=== PATIENT | female | born 1975 | race American Indian/Alaskan Native ===

== ENCOUNTER 2017-04-06 14:08 | Emergency (ER) | payer OTHER ==
--- NOTE | 2017-04-06 14:24 | Emergency Department Report ---
Chief Complaint: High BP Stated Complaint: SOB,HTN Time Seen by Provider: 04/06/17 14:19 - HPI History of Present Illness: PT states she recently had an IUD placed - 02-21-17 PT states on subsequent visit- her bp has been elevated PT c/o pelvic pain. PT states she was seen at and had US - ROS Review of Systems: + vaginal bleeding - swelling to ext + left leg pain - Exam Physical Exam: pt looks well, non toxic. steady gait noted MSE screening note: Focused history and physical exam performed. Due to findings the following was ordered: labs, us ED Disposition for MSE Condition: Stable
[2017-04-06 15:26] LABS: Bacteria,Urine 2+ /HPF (Negative); Bilirubin,Urine NEG (Negative); Blood,Urine MOD (Negative); Ketones,Urine NEG (Negative); Leukocyte Esterase,Urine SM (Negative); Mucus,Urine FEW /HPF; Nitrite,Urine NEG (Negative); Protein,Urine <15 mg/dL mg/dL (Negative); Urobilinogen,Urine < 2.0 mg/dL (<2.0)
[2017-04-06 15:45] LABS: Basophils % (Auto) 0.8 % (0.0-1.8); Hematocrit 40.6 % (30.3-42.9); Hemoglobin 13.2 gm/dl (10.1-14.3); Mean Corpuscular HGB Conc 33 % (30-34); Mean Corpuscular Hemoglobin 28 pg (28-32); Mean Corpuscular Volume 86 fl (79-97); Platelet Count 347 K/mm3 (140-440); Red Blood Count 4.73 M/mm3 (3.65-5.03); Red Cell Distribution Width 13.8 % (13.2-15.2); White Blood Count 15.4 K/mm3 (4.5-11.0)
[2017-04-06 16:18] LABS: Alanine Aminotransferase 18 units/L (7-56); Albumin 4.3 g/dL (3.9-5); Albumin/Globulin Ratio 1.2 %; Alkaline Phosphatase 61 units/L (35-129); Anion Gap 14 mmol/L; Blood Urea Nitrogen 12 mg/dL (7-17); Calcium 9.3 mg/dL (8.4-10.2); Carbon Dioxide 29 mmol/L (22-30); Chloride 94.6 mmol/L (98-107); Glucose 90 mg/dL (65-100); Potassium 3.7 mmol/L (3.6-5.0); Sodium 134 mmol/L (137-145)
[2017-04-07] MEDS ORDERED: NORCO 5/325 PO ONE (03:53)
--- NOTE | 2017-04-07 05:30 | Emergency Department Report ---
HPI - General Chief Complaint: High BP Time Seen by Provider: 04/06/17 14:19 - HPI HPI: This is a 41-year-old Afro-[place] female who presents to the emergency department with a few different complaints. The patient says she's been dealing with some uncontrolled blood pressure. She has had a couple different visits to a urgent care who eventually started her on 10 mg of Norvasc. She says she has been taking compliantly over the past few days but still had an elevated blood pressure when she checked it earlier today at [facility]. She also complains of a generalized headache for the past 2 days. She denies any vision change, slurred speech or any neurological deficits. The patient complained of some shortness of breath. When she told the urgent care physician that she was having shortness of breath with recent IUD placed, she was told to come to [facility] for further evaluation. She denies any fever, back pain, dysuria, vaginal bleeding, vaginal discharge or diaphoresis. She does not have any other past medical history. No recent travel or sick contacts at home. She denies any tobacco abuse or illicit drug use. ED Past Medical Hx - Past Medical History Previous Medical History?: No - Surgical History Past Surgical History?: No - Social History Smoking Status: Never Smoker - Medications Home Medications: Home Medications Medication Instructions Recorded Confirmed Last Taken Type HYDROcodone/APAP 5-325 [[place] 1 each PO Q6HR PRN #10 tablet 04/07/17 Unknown Rx 5/325] ED Review of Systems ROS: Stated complaint: SOB,HTN Other details as noted in HPI Comment: All other systems reviewed and negative Constitutional: denies: chills, fever Eyes: denies: eye pain, eye discharge, vision change ENT: denies: ear pain, throat pain Respiratory: shortness of breath. denies: cough Cardiovascular: denies: palpitations, edema Gastrointestinal: denies: abdominal pain, nausea, diarrhea Genitourinary: denies: urgency, dysuria, discharge Musculoskeletal: denies: back pain, joint swelling, arthralgia Skin: denies: rash, lesions Neurological: headache. denies: weakness, numbness Physical Exam - Physical Exam Vital Signs: Vital Signs 04/06/17 04/06/17 04/07/17 14:18 22:09 00:18 Temperature 97.5 F L 98.6 F 98.5 F Pulse Rate 99 H 96 H 90 Respiratory 16 18 18 Rate Blood Pressure 134/93 Blood Pressure 150/110 166/117 [Right] O2 Sat by Pulse 100 100 98 Oximetry 04/07/17 04/07/17 04/07/17 02:09 03:04 03:11 Temperature 98.9 F Pulse Rate 88 86 78 Respiratory 18 12 20 Rate Blood Pressure 123/86 134/92 Blood Pressure [Right] O2 Sat by Pulse 100 100 Oximetry 04/07/17 04/07/17 04/07/17 03:21 03:31 03:41 Temperature Pulse Rate 76 76 90 Respiratory 16 17 13 Rate Blood Pressure 128/90 117/69 117/69 Blood Pressure [Right] O2 Sat by Pulse 94 Oximetry 04/07/17 04/07/17 04/07/17 03:51 04:00 04:11 Temperature Pulse Rate 77 75 64 Respiratory 16 14 16 Rate Blood Pressure 107/81 114/81 114/81 Blood Pressure [Right] O2 Sat by Pulse Oximetry 04/07/17 04/07/17 04/07/17 04:21 04:30 04:41 Temperature Pulse Rate 78 91 H 100 H Respiratory 13 14 13 Rate Blood Pressure 114/60 92/59 92/59 Blood Pressure [Right] O2 Sat by Pulse Oximetry 04/07/17 04:51 Temperature Pulse Rate 85 Respiratory 14 Rate Blood Pressure 108/68 Blood Pressure [Right] O2 Sat by Pulse 100 Oximetry Physical Exam: GENERAL: The patient is well-developed well-nourished. HEENT: Normocephalic. Atraumatic. Extraocular motions are intact. Patient has moist mucous membranes. Pupils equal reactive to light bilaterally. No nystagmus. NECK: Supple. Trachea is midline. CHEST/LUNGS: Clear to auscultation. There is no respiratory distress noted. HEART/CARDIOVASCULAR: Regular. There is no tachycardia. There is no gallop rub or murmur. ABDOMEN: Abdomen is soft, nontender. Patient has normal bowel sounds. There is no abdominal distention. SKIN: Skin is warm and dry. NEURO: The patient is awake, alert, and oriented. The patient is cooperative. The patient has no focal neurologic deficits. The patient has normal speech. MUSCULOSKELETAL: There is no tenderness or deformity. There is no limitation range of motion. There is no evidence of acute injury. ED Course Vital Signs 04/06/17 04/06/17 04/07/17 14:18 22:09 00:18 Temperature 97.5 F L 98.6 F 98.5 F Pulse Rate 99 H 96 H 90 Respiratory 16 18 18 Rate Blood Pressure 134/93 Blood Pressure 150/110 166/117 [Right] O2 Sat by Pulse 100 100 98 Oximetry 04/07/17 04/07/17 04/07/17 02:09 03:04 03:11 Temperature 98.9 F Pulse Rate 88 86 78 Respiratory 18 12 20 Rate Blood Pressure 123/86 134/92 Blood Pressure [Right] O2 Sat by Pulse 100 100 Oximetry 04/07/17 04/07/17 04/07/17 03:21 03:31 03:41 Temperature Pulse Rate 76 76 90 Respiratory 16 17 13 Rate Blood Pressure 128/90 117/69 117/69 Blood Pressure [Right] O2 Sat by Pulse 94 Oximetry 04/07/17 04/07/17 04/07/17 03:51 04:00 04:11 Temperature Pulse Rate 77 75 64 Respiratory 16 14 16 Rate Blood Pressure 107/81 114/81 114/81 Blood Pressure [Right] O2 Sat by Pulse Oximetry 04/07/17 04/07/17 04/07/17 04:21 04:30 04:41 Temperature Pulse Rate 78 91 H 100 H Respiratory 13 14 13 Rate Blood Pressure 114/60 92/59 92/59 Blood Pressure [Right] O2 Sat by Pulse Oximetry 04/07/17 04:51 Temperature Pulse Rate 85 Respiratory 14 Rate Blood Pressure 108/68 Blood Pressure [Right] O2 Sat by Pulse 100 Oximetry ED Medical Decision Making - Lab Data Result diagrams: 04/06/17 15:22 04/06/17 15:22 - EKG Data -: EKG Interpreted by Me EKG shows normal: sinus rhythm, axis, intervals, QRS complexes, ST-T waves ( nonspecific ST-T waves) Rate: normal - EKG Data When compared to previous EKG there are: previous EKG unavailable Interpretation: nonspecific ST-T wave nevaeh - Radiology Data Radiology results: report reviewed, image reviewed interpreted by me: Chest x-ray did not show any acute process. Heart is normal shape and size. No effusions. No pneumothorax. No signs of pneumonia seen. CT of the head does not show any acute process including no hemorrhage, mass, shift, diffuse edema or skull fracture. - Medical Decision Making 41-year-old female presents with multiple complaints that include labile blood pressure, headache, shortness of breath. Pulmonary embolism and to be ruled out secondary to recent IUD placement. D-dimer negative. CT of the head did not show any bleed, shift, mass or any acute process. EKG is unremarkable. Chest x-ray did not show any pneumonia, pneumothorax, pleural effusions or any acute process. Vital signs stable throughout her ED course. She had some mild hypertension upon triage but the patient was in the emergency department for a long time in total and her blood pressure is normal at time of discharge. She felt that she was having bad reactions to the Norvasc she was placed on by urgent care. Since her blood pressure is so well controlled by discharge, she was instructed just to stop taking it, make dietary changes, keep a blood pressure log and she was given multiple referrals for primary care. Rest her labs are unremarkable as well including negative troponin and no signs of infection in the blood or urine. She's been encouraged to return to the emergency department with any worsening symptoms or any acute distress. - Differential Diagnosis PE, pneumonia, bronchitis, tension headache, migraine Critical Care Time: No Critical care attestation.: If time is entered above; I have spent that time in minutes in the direct care of this critically ill patient, excluding procedure time. ED Disposition Clinical Impression: Blood pressure elevated without history of HTN, Shortness of breath Headache Qualifiers: Headache type: unspecified Headache chronicity pattern: acute headache Intractability: not intractable Qualified Code(s): R51 - Headache Disposition: DC-01 TO HOME OR SELFCARE Is pt being admited?: No Condition: Stable Instructions: Acute Headache (ED), Dyspnea (ED), Hypertension (ED) Additional Instructions: Please follow-up with a primary care physician in the next few days. Try to stay away from foods that are high in salt and caffeinated products to help with her blood pressure. Keep a blood pressure log. Return to the emergency department with any worsening of your symptoms or any acute distress. You've been prescribed a medication that is sedating. Therefore this medication cannot be mixed with alcohol, or taken prior to driving, working, or being responsible for children. Prescriptions: HYDROcodone/APAP 5-325 [[place] 5/325] 1 each PO Q6HR PRN #10 tablet PRN Reason: Pain Referrals: PRIMARY CARE, [Primary Care Provider] - 3-5 Days FEMI ALVARADO MD [Staff Physician] - 3-5 Days ROSLAIE THOMPSON MD [Staff Physician] - 3-5 Days MARYSE WALSH MD [Staff Physician] - 3-5 Days [facility] [Outside] - 3-5 Days Forms: Work/School Release Form(ED) Time of Disposition: 06:20
--- NOTE | 2017-04-07 05:56 | Cat Scan Report ---
FINAL REPORT PROCEDURE: CT HEAD/BRAIN WO CON TECHNIQUE: Computerized tomography of the head was performed without contrast material. HISTORY: Headache COMPARISON: No prior studies are available for comparison. FINDINGS: Skull and scalp: Normal. Paranasal sinuses: Normal. Ventricles and subarachnoid spaces: Normal. Cerebrum: No evidence of hemorrhage, acute infarction or mass . Cerebellum and brainstem: No evidence of hemorrhage, acute infarction or mass. Vasculature: Normal. Comments: None. IMPRESSION: There is no evidence of an acute intracranial process
[2017-04-07 06:35] VITALS: BP 123/73
--- NOTE | 2017-04-07 07:33 | XRay Report ---
AP CHEST: HISTORY: Short of breath AP view of the chest demonstrates a normal mediastinal and cardiac contour with clear lungs and normal bony and soft tissue structures. IMPRESSION: Unremarkable AP chest.
--- NOTE | 2017-04-07 07:58 | Vascular Lab Report ---
Left Lower Extremity Venous Duplex Study: Reason for Exam: Pain of the left lower extremity. Comments on the Right: A limited duplex study was done of the proximal veins of the right lower extremity. All veins visualized are freely compressible without evidence of internal echogenicity. Flow is spontaneous and phasic throughout. No evidence of acute or chronic thrombus is seen in any of the vessels visualized. Comments on the Left: All veins visualized are freely compressible without evidence of internal echogenicity. Flow is spontaneous and phasic throughout. No evidence of acute or chronic thrombus is seen in any of the vessels visualized. Impression: No evidence of acute or chronic deep venous thrombosis in the left lower extremity.
== END 2017-04-07 06:47 | disposition home or self-care (01) ==
LOC: ED 14:08
DX: R03.0 Elevated blood-pressure reading, without diagnosis of hypertension (principal); R06.02 Shortness of breath; R51 Headache
CPT/HCPCS: 36415; 70450; 71010; 80053; 81001; 84484; 84703; 85025; 85379; 93005; 93010